=== PATIENT | male | born 1965 | race African-American/Black ===

== ENCOUNTER 2019-09-21 21:34 | Emergency (ER) | payer BC ==
[2019-09-21 21:52] VITALS: RESP 18
[2019-09-21 22:49] LABS: Basophils % (A) 0 %; Eosinophils # (A) 0.1 k/uL (0-0.7); Eosinophils % (A) 2 %; HCT 40.8 % (39.0-53.0); HGB 13.5 gm/dL (13.0-17.5); Lymphocytes # (A) 0.5 k/uL (1.0-4.8); Lymphocytes % (A) 10 %; MCH 31.2 pg (25.0-35.0); MCV 94.6 fL (80.0-100.0); Mean Platelet Volume 6.8; Monocytes # (A) 0.1 k/uL (0-1.0); Monocytes % (A) 2 %; Neutrophils # (A) 4.7 k/uL (1.3-7.7); Neutrophils % (A) 86 %; Platelet Count 250 k/uL (150-450); RBC 4.32 m/uL (4.30-5.90); RDW 12.3 % (11.5-15.5); WBC 5.5 k/uL (3.8-10.6)
[2019-09-21 22:54] LABS: Appearance,Urine Cloudy (Clear); Bacteria,Urine Many /hpf; Bilirubin,Urine Negative (Negative); Blood,Urine Moderate (Negative); Color,Urine Yellow; Glucose,Urine (UA) Negative (Negative); Ketones,Urine Negative (Negative); Leukocyte Esterase,Urine Large (Negative); Mucus,Urine Few /hpf; Nitrite,Urine Positive (Negative); Protein,Urine 1+ (Negative); RBC,Urine 72 /hpf (0-5); Specific Gravity,Urine 1.024 (1.001-1.035); Sperm,Urine Many /hpf; Squamous Epithelial Cell,Urine 1 /hpf (0-4); Urobilinogen,Urine <2.0 mg/dL (<2.0); WBC,Urine >182 /hpf (0-5)
--- NOTE | 2019-09-21 22:57 | XR ---
EXAMINATION TYPE: XR chest 2V DATE OF EXAM: 09/21/2019 COMPARISON: NONE HISTORY: Fever and headache TECHNIQUE: Frontal and lateral views of the chest are obtained. FINDINGS: Heart and mediastinum are normal. Lungs are clear. Diaphragm is normal. Bony thorax appear s normal. IMPRESSION: Normal chest
[2019-09-21 22:58] LABS: ALT 52 U/L (21-72); AST 38 U/L (17-59); African American GFR (CKD) >90 (>60 ml/min/1.73 sqM); Albumin 4.4 g/dL (3.5-5.0); Alkaline Phosphatase 65 U/L (38-126); Anion Gap 9 mmol/L; Blood Urea Nitrogen 16 mg/dL (9-20); Calcium 9.4 mg/dL (8.4-10.2); Carbon Dioxide 29 mmol/L (22-30); Chloride 105 mmol/L (98-107); Glucose 93 mg/dL (74-99); Non-African American GFR(CKD) >90 (>60 ml/min/1.73 sqM); Potassium 3.7 mmol/L (3.5-5.1); Sodium 143 mmol/L (137-145); Total Bilirubin 0.3 mg/dL (0.2-1.3)
--- NOTE | 2019-09-21 23:12 | XR ---
EXAMINATION TYPE: XR KUB DATE OF EXAM: 09/21/2019 COMPARISON: NONE HISTORY: Fever and headache TECHNIQUE: Single view FINDINGS: Bowel gas pattern is normal. There is no sign of intestinal obstruction or pneumoperitoneum . Fecal pattern is fairly normal. There is no sign of a mass. There are no pathologic calcifications over the kidneys. IMPRESSION: Nonacute abdomen.
[2019-09-22] MEDS ORDERED: AZITHROMYCIN 500 MG TAB PO STA (00:12)
[2019-09-22] MEDS ORDERED: cefTRIAXone 1,000 MG VIAL (IM USE) IM STA (00:12)
[2019-09-22] MEDS ORDERED: HYDROcodone/APAP 5-325MG 1 EACH TAB PO STA (00:19)
[2019-09-22] MEDS ORDERED: NITROGLYCERIN SL TABS 0.4 MG TAB SUBLINGUAL PRN (00:28)
[2019-09-22] MEDS ORDERED: DOXYCYCLINE 100 MG CAP PO SCH (00:30)
--- NOTE | 2019-09-22 00:31 | ED ---
General Adult HPI - General Source: patient, RN notes reviewed, old records reviewed Mode of arrival: ambulatory Limitations: no limitations <Vin Sierra - Last Filed: 09/22/19 00:40> <Omari Ramirez - Last Filed: 09/22/19 07:35> - General Chief complaint: Fever Stated complaint: Fever Time Seen by Provider: 09/21/19 21:57 - History of Present Illness Initial comments: 53-year-old male patient presents to ED with chief complaint of fevers and chills beginning approximately one hour prior to presentation. Patient reports that he was shaking. Patient also reports that approximately week ago he was having similar symptoms however the resolved. Patient reports that while he was shaking he had a transient episode of substernal chest pain. Denies any previous cardiac issues. Patient reports that this pain just transient and is now pain free. Denies any other complaints. Systemic: Pt denies fatigue, rash. Pt denies weakness, night sweats, weight loss. Neuro: Pt denies headache, visual disturbances, syncope or pre-syncope. HEENT: Pt denies ocular discharge or irritation, otalgia, rhinorrhea, pha ryngitis or notable lymphadenopathy. Cardiopulmonary: Pt denies chest pain, SOB, heart palpitations, dyspnea on exertion. Abdominal/GI: Pt denies abdominal pain, n/v/d. : Pt denies dysuria, burning w/ urination, frequency/urgency. Denies new onset urinary or bowel incontinence. MSK: Pt denies myalgia, loss of strength or function in extremities. Neuro: Pt denies new onset weakness, paresthesias. (Vin Sierra) - Related Data Previous Rx's Medication Instructions Recorded Dicyclomine [Bentyl] 20 mg PO QID #20 tablet 09/04/14 Ondansetron [Zofran] 4 mg PO Q8HR PRN #15 tab 09/04/14 Doxycycline [Vibramycin] 100 mg PO BID #28 cap 09/22/19 Allergies Allergy/AdvReac Type Severity Reaction Status Date / Time No Known Allergies Allergy Verified 09/04/14 08:49 Review of Systems ROS Other: All systems not noted in ROS Statement are negative. <Vin Sierra - Last Filed: 09/22/19 00:40> ROS Other: All systems not noted in ROS Statement are negative. <Omari Ramirez Last Filed: 09/22/19 07:35> ROS Statement: Those systems with pertinent positive or pertinent negative responses have been documented in the HPI. Past Medical History Past Medical History: No Reported History History of Any Multi-Drug Resistant Organisms: None Reported Past Surgical History: No Surgical Hx Reported Past Psychological History: No Psychological Hx Reported Smoking Status: Never smoker Past Alcohol Use History: Occasional Past Drug Use History: None Reported <Vin Sierra - Last Filed: 09/22/19 00:40> General Exam Limitations: no limitations <Vin Sierra - Last Filed: 09/22/19 00:40> - General Exam Comments Initial Comments: Constitutional: NAD, AOX3, Pt has pleasant affect. HEENT: NC/AT, trachea midline, neck supple, no lymphadenopathy. Posterior pharynx non erythematous, without exudates. External ears appear normal, without discharge. Mucous membranes moist. Eyes PERRLA, EOM intact. There is no scleral icterus. No pallor noted. Cardiopulmonary: RRR, no murmurs, rubs or gallops, no JVD noted. Lungs CTAB in anterior and posterior hopper. No peripheral edema. Abdominal exam: Abdomen soft and non-distended. Abdomen non-tender to palpation in all 4 quadrants. Bowel sounds active in LLQ. No hepatosplenomegaly. No ecchymosis Neuro: CN II-XII grossly intact. No nuchal rigidity. No raccon eyes, no lynn sign, no hemotympanum. No cervical spinal tenderness. MSK: No posterior calf tenderness bilaterally, homans sign negative bilaterally. Posterior tibialis and radial pulse +2 bilaterally. Sensation intact in upper and lower extremities. Full active ROM in upper and lower extremities, 5/5 stregnth. (Vin Sierra) Course Vital Signs 09/21/19 09/21/19 09/22/19 21:49 23:40 01:07 Temperature 99.4 F 102 F H Pulse Rate 86 94 89 Respiratory 18 18 18 Rate Blood Pressure 139/77 134/65 103/86 O2 Sat by Pulse 98 99 98 Oximetry 09/22/19 03:21 Temperature 99.8 F H Pulse Rate 78 Respiratory 18 Rate Blood Pressure 110/64 O2 Sat by Pulse 99 Oximetry Medical Decision Making - Lab Data Result diagrams: 09/21/19 22:38 09/21/19 22:38 - EKG Data -: EKG Interpreted by Me (Dr. Edmonds, Dr. Bliss) <Vin Sierra - Last Filed: 09/22/19 00:40> - Lab Data Result diagrams: 09/21/19 22:38 09/21/19 22:38 <Omari Ramirez - Last Filed: 09/22/19 07:35> - Medical Decision Making 53-year-old male patient presents to ED with chief complaint of fevers and chills beginning approximately one hour prior to presentation. Patient reports that he was shaking. Patient also reports that approximately week ago he was having similar symptoms however the resolved. Patient reports that while he was shaking he had a transient episode of substernal chest pain. Denies any previous cardiac issues. Patient reports that this pain just transient and is now pain free. Denies any other complaints. She felt some stable, nonfebrile. Physical exam didn't display acute pathology. Laboratory investigations revealed a urinary tract infection. Troponin negative. Influenza negative. KB negative, chest x-ray negative. EKG didn't display ST elevation in lead 1 aVL. Depression in lead 3. This EKG was evaluated by Dr. Martin as well as on-call cardiology. He believes that this is a normal variant and is not an acute myocardial infarction. Patient is to be chest pain-free. Patient will be admitted for serial cardiac enzymes, IV antibiotics for possible prostatitis. Case discussed with Dr. Bliss. (Vin Sierra) I saw this patient in conjunction with the physician assistant grocery. I performed independent history and physical exam. Agree with case management. The patient was feeling much better following the fluids and medication. He did have repeat cardiac enzymes that were again negative. He is not having any symptoms suggestive of cardiac etiology. Further treatment and follow-up as discussed and patient would like to go home and is discharged. (Omari Ramirez) - Lab Data Lab Results 09/21/19 09/21/19 09/21/19 Range/Units 22:38 22:38 22:38 WBC 5.5 (3.8-10.6) k/uL RBC 4.32 (4.30-5.90) m/uL Hgb 13.5 (13.0-17.5) gm/dL Hct 40.8 (39.0-53.0) % MCV 94.6 (80.0-100.0) fL MCH 31.2 (25.0-35.0) pg MCHC 33.0 (31.0-37.0) g/dL RDW 12.3 (11.5-15.5) % Plt Count 250 (150-450) k/uL Neutrophils % 86 % Lymphocytes % 10 % Monocytes % 2 % Eosinophils % 2 % Basophils % 0 % Neutrophils # 4.7 (1.3-7.7) k/uL Lymphocytes # 0.5 L (1.0-4.8) k/uL Monocytes # 0.1 (0-1.0) k/uL Eosinophils # 0.1 (0-0.7) k/uL Basophils # 0.0 (0-0.2) k/uL Sodium 143 (137-145) mmol/L Potassium 3.7 (3.5-5.1) mmol/L Chloride 105 (98-107) mmol/L Carbon Dioxide 29 (22-30) mmol/L Anion Gap 9 mmol/L BUN 16 (9-20) mg/dL Creatinine 0.88 (0.66-1.25) mg/dL Est GFR (CKD-EPI)AfAm >90 (>60 ml/min/1.73 sqM) Est GFR (CKD-EPI)NonAf >90 (>60 ml/min/1.73 sqM) Glucose 93 (74-99) mg/dL Plasma Lactic Acid Jeffrey (0.7-2.0) mmol/L Calcium 9.4 (8.4-10.2) mg/dL Total Bilirubin 0.3 (0.2-1.3) mg/dL AST 38 (17-59) U/L ALT 52 (21-72) U/L Alkaline Phosphatase 65 (38-126) U/L Troponin I (0.000-0.034) ng/mL Total Protein 8.0 (6.3-8.2) g/dL Albumin 4.4 (3.5-5.0) g/dL Urine Color Urine Appearance (Clear) Urine pH (5.0-8.0) Ur Specific Arnold (1.001-1.035) Urine Protein (Negative) Urine Glucose (UA) (Negative) Urine Ketones (Negative) Urine Blood (Negative) Urine Nitrite (Negative) Urine Bilirubin (Negative) Urine Urobilinogen (<2.0) mg/dL Ur Leukocyte Esterase (Negative) Urine RBC (0-5) /hpf Urine WBC (0-5) /hpf Ur Squamous Epith Cells (0-4) /hpf Urine Bacteria (None) /hpf Urine Mucus (None) /hpf Urine Sperm (None) /hpf Influenza Type A RNA Not Detected (Not Detectd) Influenza Type B (PCR) Not Detected (Not Detectd) 09/21/19 09/21/19 09/21/19 Range/Units 22:38 22:38 22:38 WBC (3.8-10.6) k/uL RBC (4.30-5.90) m/uL Hgb (13.0-17.5) gm/dL Hct (39.0-53.0) % MCV (80.0-100.0) fL MCH (25.0-35.0) pg MCHC (31.0-37.0) g/dL RDW (11.5-15.5) % Plt Count (150-450) k/uL Neutrophils % % Lymphocytes % % Monocytes % % Eosinophils % % Basophils % % Neutrophils # (1.3-7.7) k/uL Lymphocytes # (1.0-4.8) k/uL Monocytes # (0-1.0) k/uL Eosinophils # (0-0.7) k/uL Basophils # (0-0.2) k/uL Sodium (137-145) mmol/L Potassium (3.5-5.1) mmol/L Chloride (98-107) mmol/L Carbon Dioxide (22-30) mmol/L Anion Gap mmol/L BUN (9-20) mg/dL Creatinine (0.66-1.25) mg/dL Est GFR (CKD-EPI)AfAm (>60 ml/min/1.73 sqM) Est GFR (CKD-EPI)NonAf (>60 ml/min/1.73 sqM) Glucose (74-99) mg/dL Plasma Lactic Acid Jeffrey 1.0 (0.7-2.0) mmol/L Calcium (8.4-10.2) mg/dL Total Bilirubin (0.2-1.3) mg/dL AST (17-59) U/L ALT (21-72) U/L Alkaline Phosphatase (38-126) U/L Troponin I <0.012 (0.000-0.034) ng/mL Total Protein (6.3-8.2) g/dL Albumin (3.5-5.0) g/dL Urine Color Yellow Urine Appearance Cloudy (Clear) Urine pH 6.0 (5.0-8.0) Ur Specific Arnold 1.024 (1.001-1.035) Urine Protein 1+ H (Negative) Urine Glucose (UA) Negative (Negative) Urine Ketones Negative (Negative) Urine Blood Moderate H (Negative) Urine Nitrite Positive (Negative) Urine Bilirubin Negative (Negative) Urine Urobilinogen <2.0 (<2.0) mg/dL Ur Leukocyte Esterase Large H (Negative) Urine RBC 72 H (0-5) /hpf Urine WBC >182 H (0-5) /hpf Ur Squamous Epith Cells 1 (0-4) /hpf Urine Bacteria Many H (None) /hpf Urine Mucus Few H (None) /hpf Urine Sperm Many H (None) /hpf Influenza Type A RNA (Not Detectd) Influenza Type B (PCR) (Not Detectd) 09/22/19 Range/Units 02:05 WBC (3.8-10.6) k/uL RBC (4.30-5.90) m/uL Hgb (13.0-17.5) gm/dL Hct (39.0-53.0) % MCV (80.0-100.0) fL MCH (25.0-35.0) pg MCHC (31.0-37.0) g/dL RDW (11.5-15.5) % Plt Count (150-450) k/uL Neutrophils % % Lymphocytes % % Monocytes % % Eosinophils % % Basophils % % Neutrophils # (1.3-7.7) k/uL Lymphocytes # (1.0-4.8) k/uL Monocytes # (0-1.0) k/uL Eosinophils # (0-0.7) k/uL Basophils # (0-0.2) k/uL Sodium (137-145) mmol/L Potassium (3.5-5.1) mmol/L Chloride (98-107) mmol/L Carbon Dioxide (22-30) mmol/L Anion Gap mmol/L BUN (9-20) mg/dL Creatinine (0.66-1.25) mg/dL Est GFR (CKD-EPI)AfAm (>60 ml/min/1.73 sqM) Est GFR (CKD-EPI)NonAf (>60 ml/min/1.73 sqM) Glucose (74-99) mg/dL Plasma Lactic Acid Jeffrey (0.7-2.0) mmol/L Calcium (8.4-10.2) mg/dL Total Bilirubin (0.2-1.3) mg/dL AST (17-59) U/L ALT (21-72) U/L Alkaline Phosphatase (38-126) U/L Troponin I 0.020 (0.000-0.034) ng/mL Total Protein (6.3-8.2) g/dL Albumin (3.5-5.0) g/dL Urine Color Urine Appearance (Clear) Urine pH (5.0-8.0) Ur Specific Arnold (1.001-1.035) Urine Protein (Negative) Urine Glucose (UA) (Negative) Urine Ketones (Negative) Urine Blood (Negative) Urine Nitrite (Negative) Urine Bilirubin (Negative) Urine Urobilinogen (<2.0) mg/dL Ur Leukocyte Esterase (Negative) Urine RBC (0-5) /hpf Urine WBC (0-5) /hpf Ur Squamous Epith Cells (0-4) /hpf Urine Bacteria (None) /hpf Urine Mucus (None) /hpf Urine Sperm (None) /hpf Influenza Type A RNA (Not Detectd) Influenza Type B (PCR) (Not Detectd) - EKG Data EKG Comments: Sugar 89,. 14, QRS 88, QT/QTC 348 since 423. Normal sinus rhythm. ST elevation in lead 1, aVL, depression lead 3. Interpreted by Dr. Briggs as well as likely normal variant. (Vin Sierra) Disposition Is patient prescribed a controlled substance at d/c from ED?: No <Vin Sierra - Last Filed: 09/22/19 00:40> <Omari Ramirez - Last Filed: 09/22/19 07:35> Clinical Impression: Prostatitis, EKG abnormalities Disposition: ADMITTED IP TO THIS HOSP Condition: Serious Instructions (If sedation given, give patient instructions): Fever in Adults (ED) Prescriptions: Doxycycline [Vibramycin] 100 mg PO BID #28 cap Referrals: None,Stated [Primary Care Provider] - 1-2 days
[2019-09-22] MEDS ORDERED: ACETAMINOPHEN TAB 325 MG TAB PO STA (01:12)
[2019-09-22] MEDS ORDERED: IBUPROFEN 400 MG TAB PO STA (01:12)
[2019-09-22] MEDS ORDERED: SODIUM CHLORIDE 0.9% 1,000 ML IV ONE (03:03)
[2019-09-22 03:22] VITALS: BP 110/64; PULSE 78; TEMP 99.8
[2019-09-23] MEDS ORDERED: ASPIRIN 325 MG TAB PO SCH (09:00)
[2019-09-23 13:19] LABS: C. trachomatis,PCR Negative (Neg,Equiv); Chlamydia trachomatis Source Urine
[2019-09-23 13:26] LABS: N. gonorrhoeae,PCR Negative (Neg,Equiv); Neisseria Source Urine
== END 2019-09-22 03:22 | disposition other institution (70) ==
LOC: EC 21:34
DX: N41.9 Inflammatory disease of prostate, unspecified (principal); R94.31 Abnormal electrocardiogram [ECG] [EKG]
CPT/HCPCS: 36415 ×2; 93005; 80053; 83605; 84484 ×2; 85025; 81001; 87040; 87491; 87591; 87086; 87502; 71046; 74018; 99285; 96360; 96372; J0696; 87077; 87186

== ENCOUNTER 2020-04-16 08:05 | Emergency (ER) | payer BC, OTHER ==
[2020-04-16 08:09] VITALS: BP 131/81; PULSE 64; RESP 18; TEMP 98
--- NOTE | 2020-04-16 08:28 | ED ---
General Adult HPI - General Chief complaint: Extremity Injury, Upper Stated complaint: thumb injury Time Seen by Provider: 04/16/20 08:11 Source: patient, RN notes reviewed Mode of arrival: ambulatory Limitations: no limitations - History of Present Illness Initial comments: Patient is a pleasant 54-year-old male presenting to the emergency Department w ith right thumb pain. Incident occurred at work 3 days ago. Patient slipped and hyperextended his right thumb. Discomfort was somewhat mild. Patient repetitively uses his right thumb at work and symptoms are starting to worsen. Discomfort increases with movement. Discomfort especially increases with attempted flexion. No erythema. No swelling. - Related Data Previous Rx's Medication Instructions Recorded Dicyclomine [Bentyl] 20 mg PO QID #20 tablet 09/04/14 Ondansetron [Zofran] 4 mg PO Q8HR PRN #15 tab 09/04/14 Doxycycline [Vibramycin] 100 mg PO BID #28 cap 09/22/19 Allergies Allergy/AdvReac Type Severity Reaction Status Date / Time No Known Allergies Allergy Verified 04/16/20 08:09 Review of Systems ROS Statement: Those systems with pertinent positive or pertinent negative responses have been documented in the HPI. ROS Other: All systems not noted in ROS Statement are negative. Constitutional: Denies: fever Eyes: Denies: eye pain ENT: Denies: ear pain Respiratory: Denies: cough Cardiovascular: Denies: chest pain Gastrointestinal: Denies: abdominal pain Genitourinary: Denies: dysuria Musculoskeletal: Reports: as per HPI Past Medical History Past Medical History: No Reported History History of Any Multi-Drug Resistant Organisms: None Reported Past Surgical History: No Surgical Hx Reported Past Psychological History: No Psychological Hx Reported Smoking Status: Never smoker Past Alcohol Use History: None Reported Past Drug Use History: None Reported General Exam Limitations: no limitations General appearance: alert, in no apparent distress Head exam: Present: normocephalic Eye exam: Present: normal appearance Respiratory exam: Present: normal lung sounds bilaterally Cardiovascular Exam: Present: regular rate, normal rhythm Extremities exam: Present: full ROM (Pain with flexion.), tenderness (Tenderness right thumb from MCP to IP) Neurological exam: Present: alert Psychiatric exam: Present: normal affect, normal mood Skin exam: Present: normal color. Absent: erythema Course Vital Signs 04/16/20 08:05 Temperature 98 F Pulse Rate 64 Respiratory 18 Rate Blood Pressure 131/81 O2 Sat by Pulse 99 Oximetry Procedures - Orthopedic Splinting/Casting Injury #1 Side: right Upper Extremity Injury Location: short arm, hand Upper Extremity Immobilizer: thumb spica Medical Decision Making - Medical Decision Making Patient reevaluated and updated. X-ray findings are nonspecific and not consistent with patient's area of discomfort. - Radiology Data Radiology results: image reviewed (X-ray of the right hand has concern for questionable avulsion fracture at the base of the right first metacarpal. Also drove U with unusual contour of a metacarpal base.) Disposition Clinical Impression: Thumb sprain Disposition: HOME SELF-CARE Condition: Stable Instructions (If sedation given, give patient instructions): Hand Sprain (ED) Additional Instructions: Please follow-up with [facility] in the next day or 2 for recheck. No use right thumb/hand until released by Dr. Saucedo to affected area. [id number] Motrin as needed. If symptoms continue you may need further evaluation or orthopedic evaluation. Is patient prescribed a controlled substance at d/c from ED?: No Referrals: Darryl Dunne MD [STAFF PHYSICIAN] - 1-2 days Time of Disposition: 09:19
--- NOTE | 2020-04-16 09:08 | XR ---
EXAMINATION TYPE: XR hand complete RT DATE OF EXAM: 04/16/2020 COMPARISON: NONE HISTORY: 54-year-old male with pain TECHNIQUE: 3 views FINDINGS: Mild degenerative spurring of the first CMC joint and at the triscaphe joint. Tiny 2 mm density along the dorsal aspect of the first metacarpal base. Some overlying soft tissue swelling is noted. Unusua l contour along the dorsal aspect of the proximal metacarpal on the lateral view may be projectional and further clinical correlation is needed for point tenderness in this location. IMPRESSION: 1. Tiny 2 mm density along the dorsal aspect of the first metacarpal base. Suspected tiny capsular av ulsion fracture if pain is localized to this region. 2. The lateral view shows unusual contour along the dorsal aspect of the metacarpal base. This may be projectional. Correlate for any point tenderness in this location to determine the need for further imaging evaluation.
== END 2020-04-16 09:24 | disposition home or self-care (01) ==
LOC: EC 08:05
DX: S63.641A Sprain of metacarpophalangeal joint of right thumb, initial encounter (principal); W01.0XXA Fall on same level from slipping, tripping and stumbling without subsequent striking against object, initial encounter; X50.1XXA Overexertion from prolonged static or awkward postures, initial encounter; Y92.69 Other specified industrial and construction area as the place of occurrence of the external cause; Y99.0 Civilian activity done for income or pay
CPT/HCPCS: 29125; 99283

== ENCOUNTER 2020-11-12 15:42 | Emergency (ER) | payer BC ==
[2020-11-12 15:55] VITALS: BP 146/90; PULSE 75; RESP 18; TEMP 98.8
--- NOTE | 2020-11-12 16:20 | ED ---
Fever HPI - General Chief Complaint: Fever Stated Complaint: Covid +, fever headache Time Seen by Provider: 11/12/20 16:16 Source: patient Mode of arrival: ambulatory Limitations: no limitations - History of Present Illness Initial Comments: 54-year-old male presenting to the emergency department with a chief complaint of covid. Patient states he was diagnosed with Covid on 10/25/20. This was the day of the Covid swab. Patient states he has been having continuous nonproductive cough with no improvement in symptoms. Patient states he continues to have nonbloody diarrhea. He does report occasional nausea but never vomiting. Patient reports some rhinorrhea with an occasional sore throat. Denies any otalgia. Does report an occasional headache. Patient states she's been taking [id number] analgesics and medication for URI. Patient states he has fevers at home but never actually taken her temperature. States he is sweaty at night. He denies any chest pain or shortness of breath. He is not a smoker. - Related Data Previous Rx's Medication Instructions Recorded Dicyclomine [Bentyl] 20 mg PO QID #20 tablet 09/04/14 Ondansetron [Zofran] 4 mg PO Q8HR PRN #15 tab 09/04/14 Doxycycline [Vibramycin] 100 mg PO BID #28 cap 09/22/19 Albuterol Sulfate [Ventolin HFA] 1 - 2 puff INHALATION Q6H PRN #1 11/12/20 inhaler Azithromycin [Zithromax Z-pack (6 0 mg PO DIRECTED #1 pack 11/12/20 tabs)] methylPREDNISolone [Medrol Dose 4 mg PO DIRECTED #1 pack 11/12/20 Pack] Allergies Allergy/AdvReac Type Severity Reaction Status Date / Time No Known Allergies Allergy Verified 11/12/20 15:53 Review of Systems ROS Statement: Those systems with pertinent positive or pertinent negative responses have been documented in the HPI. ROS Other: All systems not noted in ROS Statement are negative. Past Medical History Past Medical History: No Reported History History of Any Multi-Drug Resistant Organisms: None Reported Past Surgical History: No Surgical Hx Reported Past Psychological History: No Psychological Hx Reported Past Alcohol Use History: None Reported Past Drug Use History: None Reported General Exam Limitations: no limitations General appearance: alert, in no apparent distress Head exam: Present: atraumatic, normocephalic, normal inspection Eye exam: Present: normal appearance, PERRL, EOMI Pupils: Present: normal accommodation ENT exam: Present: normal exam, normal oropharynx, mucous membranes moist, TM's normal bilaterally, normal external ear exam Neck exam: Present: normal inspection, full ROM. Absent: tenderness Respiratory exam: Present: normal lung sounds bilaterally. Absent: respiratory distress, wheezes, rales, rhonchi, stridor, chest wall tenderness Cardiovascular Exam: Absent: regular rate, normal rhythm, normal heart sounds Extremities exam: Present: normal inspection, full ROM, normal capillary refill. Absent: tenderness, pedal edema, joint swelling, calf tenderness Back exam: Present: normal inspection, full ROM. Absent: tenderness, CVA tenderness (R), CVA tenderness (L) Neurological exam: Present: alert, oriented X3 Psychiatric exam: Present: normal affect, normal mood Skin exam: Present: warm, dry, intact, normal color Course Vital Signs 11/12/20 15:50 Temperature 98.8 F Pulse Rate 75 Respiratory 18 Rate Blood Pressure 146/90 O2 Sat by Pulse 98 Oximetry Medical Decision Making - Medical Decision Making 54-year-old male presenting to the emergency department with a chief complaint of a fever. On physical examination, patient is clear to auscultation. Full size are within normal limits. Chest x-ray reveals some right basilar atelectasis or could be developing infiltrate. Patient is at approximately 21 days after diagnosed with covid-19. Patient will be started on azithromycin, albuterol inhaler and Medrol Dosepak. No chest pain shortness of breath. He was advised to follow-up with his primary care physician. Strict return parameters were thoroughly discussed the patient is an attending agreeable. Case discussed with physician. Disposition Clinical Impression: Cough Disposition: HOME SELF-CARE Condition: Stable Instructions (If sedation given, give patient instructions): Pneumonia (ED) Additional Instructions: Take prescribed medication as directed. Follow up with her primary care physician. Return to emergency department if symptoms worsen. Prescriptions: methylPREDNISolone [Medrol Dose Pack] 4 mg PO DIRECTED #1 pack Albuterol Sulfate [Ventolin HFA] 1 - 2 puff INHALATION Q6H PRN #1 inhaler PRN Reason: Wheezing Azithromycin [Zithromax Z-pack (6 tabs)] 0 mg PO DIRECTED #1 pack Is patient prescribed a controlled substance at d/c from ED?: No Referrals: Alen George MD [Primary Care Provider] - 1-2 days Time of Disposition: 17:37
--- NOTE | 2020-11-12 17:16 | XR ---
EXAMINATION TYPE: XR chest 1V portable DATE OF EXAM: 11/12/2020 COMPARISON: 09/21/2019. HISTORY: Shortness of breath. TECHNIQUE: Single frontal view of the chest is obtained. FINDINGS: There is subtle small opacity in right lung base. No pleural effusion, or pneumothorax see n. The cardiac silhouette size is within normal limits. The osseous structures are intact. IMPRESSION: Subtle right basilar atelectasis versus developing infiltrate.
== END 2020-11-12 17:59 | disposition home or self-care (01) ==
LOC: SUPCPDRO 15:42 → EC 15:42
DX: R05 Cough (principal); Z20.822 Contact with and (suspected) exposure to COVID-19
CPT/HCPCS: 71045; 99283